=== PATIENT | male | born 1980 | race Caucasian/White ===

== ENCOUNTER 2022-08-21 20:00 | Emergency (ER) | payer OTHER ==
[2022-08-21 20:19] VITALS: BP 125/69
[2022-08-21] MEDS: AMOX/CLAV 875 MG/125 MG TABLET PO STA (21:20)
[2022-08-21] MEDS: HYDROcod/ACET 5/325 Prepack 4 PO STA (21:20)
--- NOTE | 2022-08-21 21:23 | ED Physician Documentation ---
History of Present Illness - Stated complaint Stated Complaint: NASAL PX - Chief complaint Chief Complaint: Heent - Additonal information Additional information: This is a 41-year-old male who has had viral URI symptoms for about 2 weeks but states they are worsening. He has nasal congestion, headache, mild cough. He has no respiratory distress. He states that right maxillary pain has increased substantially over the course of the last couple of days and he was not able to sleep last night due to the pain. He is blowing his nose but not much is coming out. He has tried Flonase and some nasal saline spray without relief. He has no history of chronic sinusitis. No recent antibiotic use. He took several home COVID test which were negative. Review of Systems Ten Systems: 10 systems reviewed and negative (except as per HPI) PD PAST MEDICAL HISTORY - Past Medical History Past Medical History: No Cardiovascular: None Respiratory: None Neuro: None Endocrine/Autoimmune: None GI: None : None HEENT: None Psych: None Musculoskeletal: None Derm: None - Past Surgical History Past Surgical History: Yes General: Other Ortho: ACL reconstruction - Present Medications Home Medications: Ambulatory Orders Medication Instructions Recorded Confirmed Amox/Clav 875/125 [Augmentin] 1 each PO Q12H #20 tablet 08/21/22 - Allergies Allergies/Adverse Reactions: Allergies Allergy/AdvReac Type Severity Reaction Status Date / Time No Known Drug Allergies Allergy Verified 08/21/22 20:19 - Social History Does the pt smoke?: No Smoking Status: Never smoker Does the pt drink ETOH?: No Does the pt have substance abuse?: No - Immunizations Immunizations are current?: Yes - POLST Patient has POLST: No PD ED PE NORMAL - Vitals Vital signs reviewed: Yes - General General: Alert and oriented X 3, No acute distress, Well developed/nourished - HEENT HEENT: Atraumatic, Ears normal, Moist mucous membranes, Pharynx benign, Dentition benign, Other (tender right maxillary sinus, no erythema. Nasal mucosa reddneed, no current drainage. ) - Neck Neck: Supple, no meningeal sign, No adenopathy, No JVD - Cardiac Cardiac: RRR, No murmur - Respiratory Respiratory: No respiratory distress, Clear bilaterally - Abdomen Abdomen: Normal bowel sounds - Derm Derm: Normal color, Warm and dry, No rash - Neuro Neuro: Alert and oriented X 3 Eye Opening: Spontaneous Motor: Obeys Commands Verbal: Oriented GCS Score: 15 - Psych Psych: Normal mood, Normal affect Results - Vitals Vitals: Vital Signs - 24 hr 08/21/22 20:13 Temperature 36.5 C Heart Rate 77 Respiratory 16 Rate Blood Pressure 125/69 O2 Saturation 97 Oxygen O2 Source Room air PD MEDICAL DECISION MAKING - ED course Complexity details: considered differential, d/w patient ED course: This is a 41-year-old well-appearing male who presents with URI symptoms for the last couple weeks which are worsening and now include significant right maxillary sinus pain. He has not had a fever recently to his knowledge. He is taking Tylenol and ibuprofen without relief and has pain that is keeping him up at night. His symptoms are likely viral upper respiratory infection however given his worsening and no improvement over the course last 2 weeks and increasing right maxillary sinus pain I think it is reasonable to treat him for acute bacterial sinusitis with Augmentin. He is non toxic appearing, has no signs of dental abscess or dental caries, no facial erythema or swelling to suggest a need for a CT scan or additional workup. He was advised to continue nasal saline rinses, and continue Flonase. He may take ibuprofen and Tylenol for pain where he was given 4 tablets of Ermine for the next day or so until pain starts to improve. Departure - Departure Disposition: 01 Home, Self Care Condition: Good Instructions: Sinusitis Acute Prescriptions: Amox/Clav 875/125 [Augmentin] 1 each PO Q12H #20 tablet Comments: You presented with about 2 weeks of viral symptoms possibly the flu or another virus. We did do a respiratory viral panel but will not have the results for several hours. It does however seem as though your symptoms are worsening and sometimes Viral syndromes can turn into a bacterial sinusitis. I recommend we treat with Augmentin, antibiotic, that you will need to take for the next 10 days. You should also take ibuprofen and Tylenol for pain, and use Flonase and nasal saline.
[2022-08-21 21:36] LABS: CORONAVIRUS 229E-RESP PCR NOT DETECTED; CORONAVIRUS HKU1-RESP PCR NOT DETECTED; CORONAVIRUS NL63-RESP PCR NOT DETECTED; CORONAVIRUS OC43-RESP PCR NOT DETECTED; HUMAN METAPNEUMOVIRUS NOT DETECTED; RHINOVIRUS/ENTEROVIRUS NOT DETECTED; SARS-CoV-2 -RESP PCR PANEL NOT DETECTED
[2022-08-21 21:37] LABS: B. PARAPERTUSSIS- RESP PCR PAN NOT DETECTED; B. PERTUSSIS- RESP PCR PANEL NOT DETECTED; C. PNEUMONIAE- RESP PCR PANEL NOT DETECTED; INFLUENZA A H3- RESP PCR PANEL DETECTED; INFLUENZA B - RESP PCR PANEL NOT DETECTED; M. PNEUMONIAE- RESP PCR PANEL NOT DETECTED; PARAINFLUENZA VIRUS 1 NOT DETECTED; PARAINFLUENZA VIRUS 2 NOT DETECTED; PARAINFLUENZA VIRUS 3 DETECTED; PARAINFLUENZA VIRUS 4 NOT DETECTED; RSV- RESP PCR PANEL NOT DETECTED
== END 2022-08-21 21:23 | disposition home or self-care (01) ==
LOC: ED 20:00
DX: J01.90 Acute sinusitis, unspecified (principal); Z20.822 Contact with and (suspected) exposure to COVID-19
CPT/HCPCS: 87633; 99282; 99283; A9270

== ENCOUNTER 2023-02-26 17:13 | Emergency (ER) | payer OTHER ==
--- NOTE | 2023-02-26 17:29 | ED Physician Documentation ---
PD HPI UPPER EXT INJURY - Stated complaint Stated Complaint: LT THUM LAC - Chief complaint Chief Complaint: Ext Problem - History obtained from History obtained from: Patient - History of Present Illness Location: Left, Finger (he accidentally closed his truck door onto thumb, with laceration of nailbed and bending of nail corner into the wound, and also crushed the tip. No injury proximal to the IP joint.) Where injury occurred: Home Timing - onset: How many minutes ago (30), Today Timing - details: Abrupt onset, Still present Improved by: No: Rest Worsened by: Moving, Palpating Associated symptoms: Swelling. No: Weakness, Numbness Similar symptoms before: Has not had sx before Review of Systems Skin: reports: Laceration (s) Neurologic: denies: Focal weakness, Numbness PD PAST MEDICAL HISTORY - Past Medical History Cardiovascular: None Respiratory: None Neuro: None Endocrine/Autoimmune: None GI: None : None HEENT: None Psych: None Musculoskeletal: None Derm: None - Past Surgical History Past Surgical History: Yes General: Other Ortho: ACL reconstruction - Present Medications Home Medications: Ambulatory Orders Medication Instructions Recorded Confirmed Amox/Clav 875/125 [Augmentin] 1 each PO Q12H #20 tablet 08/21/22 HYDROcod/ACETAM 5/325 [[place] 5/325] 1 ea PO Q6H PRN #14 tablet 02/26/23 Ibuprofen [Motrin] 600 mg PO TID PRN #25 tab 02/26/23 cephALEXin [Keflex] 500 mg PO QID 5 Days #20 cap 02/26/23 - Allergies Allergies/Adverse Reactions: Allergies Allergy/AdvReac Type Severity Reaction Status Date / Time No Known Drug Allergies Allergy Verified 08/21/22 20:19 - Social History Does the pt smoke?: No Smoking Status: Never smoker Does the pt drink ETOH?: No Does the pt have substance abuse?: No - Immunizations Immunizations are current?: Yes - POLST Patient has POLST: No PD ED PE NORMAL - Vitals Vital signs reviewed: Yes - General General: Alert and oriented X 3, Well developed/nourished, Other (appears in pain due to thumb tip, which has the nail end lifted and bent, lac of the nailbed diagonally, and swelling in tuft. Not tender at IP joint and able to flex/extend okay. Small lac at side of nailbed as well. ) Results - Vitals Vitals: Vital Signs - 24 hr 02/26/23 17:21 Temperature 35.9 C L Heart Rate 85 Respiratory 20 Rate Blood Pressure 140/90 H O2 Saturation 99 Oxygen O2 Source Room air - Rads (name of study) left thumb Relevant Findings:: Prelim report reviewed, EMP independent interpretation of test (tuft fracture small distal piece. No injury at IP. no FB. ), See rad report Procedures - Laceration (location) left thumb nailbed Length in cm: 1 (there is lac in nailbed but proximal nail still attached, so left that. lac sutured is at side of nailbed) Wound type: Linear, Into subcut fat, Clean Neurovascular status: Sensory intact, Motor intact Anesthesia: Lidocaine 1% (digital block) Wound preparation: Irrigated copiously NS, Wound explored, To the base, Other (the nail was bent in middle and distal corner of it was bent and tucked into lac in nailbed. Forceps easily pulled it straight. The nail was now in place but of course loose from bed. The proximal nychium was intact. I could not access the lac without removing nail and I felt it was better remain.) Skin layer closure: Nylon, Interrupted, Size #-0 - enter number (4), Sutures - enter # (1) Other: Patient tolerated well, Neurovascular intact, Tetanus UTD PD Medical Decision Making - ED course Complexity details: reviewed results (tuft fracture with nailbed lac, so technically open fracture, though Orthopedists do not surgically clean these by my experience. Cleansed in ER, covered, and will give Keflex.), considered differential (the nailbed lac stops bleeding with gentle direct pressure. The lac at side of bed had 1 suture placed. The nail is left though is lifted distal half. It is a good shield/contout splint for the nailbed and is good to stay in place. ), d/w patient Drug Therapy Requiring Monitoring for Toxicity: he is cautioned about opiod pain meds and given instructions. The thumb looks like it should hurt and shared decison to give short term Rx hydrocodone. Departure - Departure Disposition: 01 Home, Self Care Clinical Impression: Open fracture of tuft of distal phalanx of left thumb Crush injury to thumb Qualifiers: Encounter type: initial encounter Laterality: left Qualified Code(s): S67.02XA - Crushing injury of left thumb, initial encounter Condition: Stable Record reviewed to determine appropriate education?: Yes Instructions: ED Fx Finger Open Follow-Up: FABIOLA Walker [Provider Group] Prescriptions: cephALEXin [Keflex] 500 mg PO QID 5 Days #20 cap Ibuprofen [Motrin] 600 mg PO TID PRN #25 tab PRN Reason: Pain HYDROcod/ACETAM 5/325 [[place] 5/325] 1 ea PO Q6H PRN #14 tablet PRN Reason: Pain Comments: With the pressure dressing on I think that we will provide enough support to keep it from bleeding notably and allow the cut to close up. My preference would be to leave the nail in place and not remove it to so the cut. See how it does later and into tomorrow. If you get some staining of the dressing that is okay. Recheck if it really is saturating. Right now with just some gentle pressure on the nail it stops bleeding. The nail will of course fall off but its best on now as a splint over the area and provides a better underneath surface for the wound to heal with out unevenness. You do have a tuft fracture. This communicates to the laceration so is technically a "open fracture". Typically with fingertips like this though the orthopedist will treat it as the fracture and the cut with antibiotics and not surgical debridement. The fracture will heal in place and do okay. It will take 4 weeks and be gradually less tender over that timeframe. Use ibuprofen 3 times daily for the next several days to week. Add Tylenol if needed. Cephalexin antibiotic 4 times daily for the next 5 days to reduce the chance of infection. Add hydrocodone every 6 hours if needed for pain in the short-term. It should hurt a fair amount less after several days. Recheck if signs of infection. Leave the initial dressing on for a day or 2 and then start with regular wound care. It is okay to wash and shower. Clean off the wound twice a day with soap and water, or peroxide and water. Apply some antibiotic ointment to it to keep it moist. Also to watch for signs of infection such as purulence, redness or increasing pain. Return to your primary care or the ER at the specified time for suture removal. The 1 suture will need to get removed in about 7 to 8 days. I sent your prescriptions to [facility] pharmacy. My narcotic instructions I am prescribing a short course of narcotic pain medication for you. These are potentially dangerous and addictive medications that should be used carefully. These medications may constipate you. Take an [id number] stool softener such as docusate twice daily with plenty of water while taking these medications. If you go 24 hours without a bowel movement, take [id number] MiraLAX, per package instructions. Do not drink or drive while taking these medications. If you received narcotic or sedating medications while in the emergency department do not drive for 24 hours. Store this medication in a safe, secure place and out of reach of children. It is a violation of federal law to give or sell this medication to another person or to use in a manner other than prescribed. The ED will not refill narcotic prescriptions, including prescriptions lost or stolen. You can dispose of unwanted medications at the [facility]'s office or at several pharmacies such as [facility]. Discharge Date/Time: 02/26/23 18:54
[2023-02-26 17:30] VITALS: BP 140/90
[2023-02-26] MEDS ORDERED: IBUPROFEN 800 MG TABLET PO STA (17:35)
[2023-02-26] MEDS ORDERED: cephALEXin 250 MG CAPSULE PO STA (18:06)
--- NOTE | 2023-02-26 19:25 | XRAY Report ---
PROCEDURE: Finger(s) LT INDICATIONS: thumb crush in truck door. TECHNIQUE: AP hand, 2 views of the left thumb acquired. COMPARISON: None. FINDINGS: Bones: Acute comminuted fracture of the first digit distal phalanx involving the tuft, with mild dis placement/distraction of fracture fragments. Soft tissues: No suspicious soft tissue calcifications . IMPRESSION: Acute comminuted fracture of the distal aspect of the first digit distal phalanx. Reviewed by: Shakir Edwards MD on 02/26/2023 7:24 PM PDT Approved by: Shakir Edwards MD on 02/26/2023 7:24 PM PDT Station ID: [id number]
== END 2023-02-26 18:54 | disposition home or self-care (01) ==
LOC: ED 17:13
DX: S62.522B Displaced fracture of distal phalanx of left thumb, initial encounter for open fracture (principal); W23.0XXA Caught, crushed, jammed, or pinched between moving objects, initial encounter
CPT/HCPCS: 11760; 73140; 99283; 99284; A9270

== ENCOUNTER 2023-09-27 15:42 | Outpatient (CLI) | payer OTHER ==
--- NOTE | 2023-09-27 16:10 | Sleep Patient Instructions ---
Sleep Center Visit Summary - Patient Visit Information Reason for Visit: Initial consult for evaluation of sleep disordered breathing and other sleep issues. - Patient Instructions Instructions Attached: Sleep Study, Sleep Study Home Monitor Additional Instructions: You will be completing a sleep study, either an in-lab polysomnography (PSG) or home sleep study (HST). You will follow-up in the sleep care office after the sleep study is completed to hear the results and talk about therapy, if needed. You will be called by our office staff to schedule this appointment, but you may contact us with any questions. - Clinic Information Contact: [facility] [address] [place] [id number] [email or web address] T: [phone]
--- NOTE | 2023-09-27 16:14 | SLEEP CARE CONSULTATION ---
Information from patient questionnaire entered by Isaac Leon. I have reviewed and concur with the information entered by Isaac Leon. This document represents the service I personally performed and the decisions made by me, Loni Murphy ARNP. History of Present Illness Service Date and Time: 09/27/2023 1542 Reason for Visit: New patient Chief Complaint: reports: Unrefreshed sleep, Snoring, Frequent awakenings at night Date of Onset: YRS Usual bedtime: 9PM Time it takes to fall asleep: 60MIN Snores at night: Yes Observed to quit breathing while asleep: No Sleeps alone due to snoring: Yes Number of times waking at night: 3-5 Reasons for waking at night: reports: Snoring, Pain (shoulder pain), Other (UNKNOWN). denies: Choking, Gasping for air Toss, Turn, or Twitch while sleeping: Yes Recalls having dreams: Yes Usually gets out of bed at: 630AM Feels refreshed in the morning: No Morning headache: Yes (2 days a week; last until 2nd cup of coffee in AM) Sleepy or fatigued during the day: Yes (no unintentional naps) Ever fallen asleep while driving: Yes (drowsy driving; no accidents) Takes day naps: No Dreams during day naps: No Prior sleep studies: No Additional HPI information: I had the pleasure of seeing BRENNAN BURNETT today regarding the possibility of him having a sleep disorder. His current complaints are unrefreshed sleep, snoring and frequent night awakenings. He is to retire from [employer] in about a year. His says he snores loudly. He has woke himself up snoring on his back. He denies waking up choking or gasping for air. He is always tired in the morning and it takes to his 2nd cup of coffee to feel awake. He does have a history of migraines and will wake up with headaches a few times a week. - Parasomnia Symptoms Ever been unable to move upon waking from sleep: No Walks in sleep: No Talks in sleep: Yes (yelling or having conversations according to ) Ever acted out dreams in sleep: Yes (jerked awake from dream) Ever felt weak in the knees when startled or emotional: No Bothered by creepy, crawly, restless sensations in legs: No Problems with memory or concentration: No Subjective Initial Follett Sleepiness Scale score: 11 (08/27/23) Past Medical History Past Medical History: reports: Arthritis, Other (migraines; Eustachian tube procedure 3-4 yrs ago) Social History The patient's occupation is a AM. Patient is and lives in [place]. Have you smoked in the past 12 months: No Cigarettes per day (20/pack): 20 Years of smokin Quit date: 2012 Smoking Pack Years: 5.0 Alcohol use: No Caffeine use: Yes Caffeine amount and frequency: 2 CUPS COFFEE DAILY Family History Family history of sleep disordered breathing: Yes Family Hx Sleep Apnea: Mother: Snoring, Father: Snoring, Sleep apnea - Untreated, Sibling: Snoring, Grandparent: Snoring Allergies and Home Medications Known drug allergies: No Drug allergies reviewed: Yes Home medication list reviewed: Yes Allergy and home medication list: Allergies No Known Drug Allergies Allergy (Verified 09/25/23 13:55) Home Medications Medication Instructions Recorded Confirmed Last Taken Type Excedrine Migrain See Rx Instructions .ROUTE .COMPLEX 09/27/23 Unknown History Meloxicam See Rx Instructions .ROUTE .COMPLEX 09/27/23 09/27/23 Unknown History Review of Systems Weight loss over past 5 years: 5 Cardiovascular: denies: high blood pressure Gastrointestinal: denies: heartburn Neurological: reports: headaches Psychiatric: denies: anxiety, depression Ear/Nose/Throat: reports: nasal congestion, nose bleeds, wisdom teeth removed. denies: tonsillectomy Musculoskeletal: reports: joint pain, back pain, joint swelling, muscle pain or cramping Immunologic: reports: sneezing Physical Exam Vital signs obtained and entered by: ISAAC Mix MA Blood Pressure: 113/80 (LEFT ARM) Cuff size: regular Heart Rate: 73 O2 Saturation: 98 Height: 5 ft 10 in Weight: 219 lb 6.4 oz Body Mass Index: 31.4 BMI Classification: Obese Neck circumference: 19.5 Mouth and throat: normal Soft palate: long Hard palate: normal Uvula: normal Uvula visualization: 25% Mallampati Class III Tongue: enlarged in size with teeth diaz on lateral edges Tonsils: small Neck: normal w/o lymphadenopathy or thyromegaly Heart: regular rate and rhythm Lungs: clear bilaterally Impression and Plan 1. Suspected Obstructive Sleep Apnea-Hypopnea Syndrome, as suggested by a history of loud and irregular snoring, morning headache, frequent awakening during the night and unrefreshed sleep. Narrow oropharynx and obesity are common predisposing factors for obstructive sleep apnea-hypopnea syndrome. I recommend proceeding to polysomnography to confirm the diagnosis and to assess severity. If the patient has significant sleep disordered breathing, a manual CPAP titration study will also be performed to find the optimal treatment pressure. I informed the patient of what the sleep studies involve and after some discussion, obtained agreement to proceed. The pathophysiology of obstructive sleep apnea-hypopnea syndrome was discussed with the patient and health risks of cardiovascular and cerebrovascular disease if not treated. Risks of drowsy driving discussed in detail and patient advised to avoid long distance driving and to box puller at the first sign of drowsiness. Patient agreed to plan. * Schedule polysomnography. * Avoid long distance driving or driving when feeling sleepy. * Avoid alcohol, sedative and muscle relaxant around bedtime. * Attempt to lose weight. * Review instructions provided by trained office staff on how to prepare for the sleep study. * Return for follow-up after sleep study completed. Counseling Topics: Weight loss health impact Plan: PSG/HST and followup Visit Type: In Office Time Spent with Patient (minutes): 30 Provider Statement: I spent 100% of the Face to Face Visit with the patient with greater than 50% spent counseling the patient and coordination of care.
[2023-09-27 16:25] VITALS: BP 113/80; O2SAT 98
== END 2023-09-27 15:43 | disposition home or self-care (01) ==
LOC: SC 15:42
PROVIDERS: ATTEND Nurse Practitioner Family
DX: R06.83 Snoring (principal); G47.8 Other sleep disorders; R51.9 Headache, unspecified; E66.9 Obesity, unspecified; Z68.31 Body mass index [BMI] 31.0-31.9, adult; Z87.891 Personal history of nicotine dependence
CPT/HCPCS: 99203; 99212

== ENCOUNTER 2023-10-07 19:18 | Outpatient (CLI) | payer OTHER | END 2023-10-07 19:19 | disposition home or self-care (01) | LOC: SC 19:18 | PROVIDERS: ATTEND Nurse Practitioner Family | DX: G47.33 Obstructive sleep apnea (adult) (pediatric) (principal) | CPT/HCPCS: 95810 ==

== ENCOUNTER 2023-10-15 11:28 | Outpatient (CLI) | payer OTHER ==
--- NOTE | 2023-10-15 11:45 | Sleep Patient Instructions ---
Sleep Center Visit Summary - Patient Visit Information Reason for Visit: Sleep study follow-up - Patient Instructions Instructions Attached: CPAP Additional Instructions: You are being started on CPAP therapy with pressure setting at 4-15 cmH2O. You w ill need to call the sleep care office to set up your follow up once you have your APAP machine and we will schedule a visit to check compliance and response to therapy at that time. You may call the office with any concerns about pressure feeling too low or too much for adjustment, if needed. You should contact DME supplier for any questions or concerns about mask or equipment. Please call office to schedule a follow up appointment in the sleep care office one month after obtaining new device. - Clinic Information Contact: [facility] [address] [place] [email or web address] T: [phone]
--- NOTE | 2023-10-15 11:47 | SLEEP CARE CONSULTATION ---
Information from patient questionnaire entered by Josey Leon. I have reviewed and concur with the information entered by Josey Leon. This document represents the service I personally performed and the decisions made by me, Loni Murphy ARNP. History of Present Illness Service Date and Time: 10/15/[address] [place] Sleepiness Scale score: 11 (08/27/23) Current [place] Sleepiness Scale score: 12 Additional HPI information: BRENNAN BURNETT returns for follow up and results of the recently performed polysomnography. The sleep study showed severe obstructive sleep apnea with an average AHI of 32.2 and ananda oxygen saturation of 80%. I explained the pathophysiology behind obstructive sleep apnea. We then spent quite a bit of time discussing different treatment options. For mild obstructive sleep apnea, surgery and oral appliance are alternatives to nasal CPAP therapy but in moderate or severe cases, nasal CPAP is the most effective and reliable treatment. Because apnea is primarily in supine position, then positional management therapy could be effective. Methods discussed such as positioning with pillows, using a T-shirt with tennis balls in the back or commercial products that have a pillow format on back to prevent supine sleep. I reviewed the impact of weight changes on sleep apnea and strongly recommended losing weight. After some discussion, the patient opted to go with the nasal CPAP therapy. Nasal autoCPAP set at 4-15 cmH20 will be ordered with rationale explained. A manual titration study will be ordered if unable to find optimal pressure with office adjustments. I explained how CPAP machine works and what to expect when using the machine. Using CPAP every night in order to get used to it was emphasized. Patient advised to put CPAP mask on before getting into bed so as not to fall asleep without CPAP. To assist acclimation to CPAP use, it could also be used for a short time during day while reading or watching TV. The patient was instructed to call the CPAP supplier to discuss any mechanical problem that may occur. If the mask given is uncomfortable or is difficult to keep on through the night even with adjustment, contact the CPAP supplier as many will replace with another mask style if notified before 30 days. If snoring or perceives is not getting enough air or too much air from the machine, notify this office. Patient does not drink alcohol. Patient was cautioned about risks of drowsy driving until sleepiness symptoms resolve. Patient denies drowsy driving. Sleep Study - Results Type of Sleep Study: Polysomnography (COMPLETED 10/07/2023) Prior sleep studies: No Polysomnography/Home Sleep Study results: IMPRESSION: The quality of the study is good. The patient had normal sleep efficiency. The sleep architecture was abnormal for sleep fragmentation and reduced amount of time spent in slow wave sleep (N3). Respiratory monitoring showed severe obstructive sleep apnea-hypopnea (AHI = 32.2) associated with frequent arousals, oxyhemoglobin desaturation and mild hypoxia (ananda oxygen saturation of 80%). Baseline oxygen saturation was normal. The respiratory events occurred almost exclusively during supine sleep (supine AHI = 47.4; non-supine = 1.61). Snore was moderate to loud in intensity. There was no significant periodic leg movement of sleep. Cardiac rhythm was normal sinus rhythm without significant arrhythmia. No abnormal behavior (parasomnia) observed during the night. Allergies and Home Medications Known drug allergies: No Drug allergies reviewed: Yes Home medication list reviewed: Yes (no changes) Allergy and home medication list: Allergies No Known Drug Allergies Allergy (Verified 10/10/23 17:48) Review of Systems Review of systems same as previous: Yes (no changes) Physical Exam Vital signs obtained and entered by: JELLY COPE Blood Pressure: 123/81 Cuff size: regular (right arm) Heart Rate: 62 O2 Saturation: 97 Height: 5 ft 10 in Weight: 227 lb 3.2 oz Body Mass Index: 32.5 BMI Classification: Obese Impression and Plan 1. Obstructive Sleep Apnea-Hypopnea Syndrome, severe, with lowest oxygen saturation of 80%. Obviously this is the cause of the patients symptoms of unrefreshed sleep, and excessive daytime sleepiness. Positive pressure therapy could benefit migraines. As mentioned above, the patient will be started on nasal autoCPAP therapy with pressure set at 4-15 cmH2O. A manual titration study will be completed if unable to find optimal treatment pressure with office adjustments. Compliance guidelines also reviewed. A copy of compliance guidelines will be given for reference at check out. Because the apnea is more severe supine, I instructed to avoid sleeping supine using pillow positioning until able to start CPAP use. 2. Hypoxemia, mild, with a ananda oxygen saturation of 80% and 43.3 minutes spent under 90%. The baseline oxygen saturation was normal with an average oxygen saturation of 91%. 3. Obesity, unspecified. Currently patients BMI is 32.5. Obesity increases the risk of apnea, CPAP pressure requirements and overall health risks especially cardiovascular and diabetes. Thus patient is advised to lose weight. * Nasal auto CPAP therapy, pressure at 4-15 cm H2O. * Attempt to lose weight. * Avoid alcohol consumption near bedtime. * Avoid supine sleep until using CPAP. * The patient is again cautioned about driving until sleepiness completely resolves. * Return one month after CPAP obtained. I will assess response to therapy and compliance at that time. Counseling Topics: Weight loss health impact Prescriptions: Auto CPAP, Device supplies Follow up with Sleep Care in: other (for compliance visit) Visit Type: In Office Time Spent with Patient (minutes): 21 Provider Statement: I spent 100% of the Face to Face Visit with the patient with greater than 50% spent counseling the patient and coordination of care.
[2023-10-15 11:48] VITALS: BP 123/81; O2SAT 97
== END 2023-10-15 11:29 | disposition home or self-care (01) ==
LOC: SC 11:28
PROVIDERS: ATTEND Nurse Practitioner Family
DX: G47.33 Obstructive sleep apnea (adult) (pediatric) (principal); R09.02 Hypoxemia; E66.9 Obesity, unspecified; Z68.32 Body mass index [BMI] 32.0-32.9, adult
CPT/HCPCS: 99212; 99213

== ENCOUNTER 2024-01-02 11:06 | Outpatient (CLI) | payer OTHER ==
--- NOTE | 2024-01-02 11:43 | Sleep Patient Instructions ---
Sleep Center Visit Summary - Patient Visit Information Reason for Visit: First compliance follow-up - Patient Instructions Additional Instructions: You were here for follow up of CPAP therapy. You will be continued on CPAP therapy with pressure at 8-10 cmH2O. Please let us know if the pressure change is uncomfortable and we can make further adjustments of the pressure. You should follow up with sleep care in 1-2 months. You may contact us sooner for any questions or concerns. - Clinic Information Contact: [facility] [address] [place] [address] [email or web address] T: [phone]
--- NOTE | 2024-01-02 11:46 | SLEEP CARE CONSULTATION ---
Information from patient questionnaire entered by Isaac Leon. I have reviewed and concur with the information entered by Isaac Leon. This document represents the service I personally performed and the decisions made by me, Loni Murphy ARNP. History of Present Illness Service Date and Time: 01/02/2024 1106 Previous diagnosis: Severe, Obstructive Sleep Apnea-Hypopnea Syndrome AHI: 32.2 (10/07/2023) Reason for follow up: first compliance Equipment type: CPAP (RESMED Airsense 11, S/U 10/25/23) Equipment obtained from: Other ([facility]; getting supplies) Mask style: Nasal Backup mask available: No (will keep old mask when replaced) Last cushion change: 2 months Prior sleep studies: No Type of Sleep Study: Polysomnography (COMPLETED 10/07/2023) HPI additional information: BRENNAN BURNETT was diagnosed to have severe, AHI 32.2, obstructive sleep apnea- hypopnea syndrome and returned today for CPAP therapy first compliance follow- up. Sleep Study - Results Type of Sleep Study: Polysomnography (COMPLETED 10/07/2023) Prior sleep studies: No CPAP Compliance Data - Data Reviewed with Patient Average duration of nightly device use: 5 HRS 0 MINS Compliance rate %: 70 (10/26/23-11/24/23; / days used) Current pressure setting (cmH2O): 4-15 (median 6.1, avg 8.5, max 9.6) Average residual AHI: 2.1 Central apnea: 0.4 Obstructive apnea: 1.3 Average large leak: 0.5 L/min Compliance data discussion: He says he is waiting on new mask cushion because the old one is so wore out he cannot get a good enough seal to use the mask. He was notified that it has been sent and is waiting for it to arrive. Subjective Missed days of use due to: reports: mask issues (mask worn out), illness, travel Patient concerns: reports: mask discomfort (cushion is not sealing due to being wore out), nasal congestion. denies: aerophagia, air blowing in eyes, mask leak noise, condensation in mask/hose, dry mouth, nose, throat, epistaxis Observed to snore while using device: No Current pressure setting perceived as: comfortable On therapy, patient: reports: sleeping better, awakening more refreshed, being more awake and alert during the day, more rested overall. denies: drowsiness while driving Initial [place] Sleepiness Scale score: 11 (08/27/23) Current [place] Sleepiness Scale score: 3 (01/02/24) Allergies and Home Medications Known drug allergies: No Drug allergies reviewed: Yes Home medication list reviewed: Yes (no changes) Allergy and home medication list: Allergies No Known Drug Allergies Allergy (Verified 12/31/23 10:17) Review of Systems Review of systems same as previous: Yes (NO CHANGE) Physical Exam Vital signs obtained and entered by: ISAAC Mix MA Blood Pressure: 133/79 (LEFT ARM) Cuff size: regular Heart Rate: 66 O2 Saturation: 99 Height: 5 ft 10 in Weight: 218 lb 3.2 oz Body Mass Index: 31.3 BMI Classification: Obese Impression and Plan 1. Obstructive Sleep Apnea-Hypopnea Syndrome, severe, with good treatment compliance and good apnea control. On CPAP therapy, the patient has better sleep quality and is more rested overall. [] The patients pressure will be changed to autoCPAP [8-10] cmH20 to reflect pressure being used with significant improvement of sleep apnea. Patient advised to contact me if pressure change is uncomfortable so that it can be adjusted. Goals for apnea control discussed. Patient's apnea severity and rationale for treatment to reduce apnea, improve sleep quality and reduce cardiovascular and cerebrovascular events was reviewed. I also reviewed the benefit of consistent device use of CPAP for migraines. 2. [Obesity][Overweight], unspecified. Currently patients BMI is [31.3]. Obesity increases the risk of apnea, CPAP pressure requirements and overall health risks especially cardiovascular and diabetes. Thus patient is advised to[ continue to try to] lose weight. * Change [auto] CPAP pressure to [8-10] cmH2O * Notify me if snoring with mask or feeling that the pressure is too much or too little * Attempt to lose weight * Call this office if any problems using CPAP * Return for follow up in 1-2 months, or sooner if concerns arise Adjust device pressure to (cmH2O): 8-10 Counseling Topics: Spare mask, Weight loss health impact Follow up with Sleep Care in: 1-2 months Visit Type: In Office Time Spent with Patient (minutes): 13 Provider Statement: I spent 100% of the Face to Face Visit with the patient with greater than 50% spent counseling the patient and coordination of care.
[2024-01-02 11:49] VITALS: BP 133/79; O2SAT 99
== END 2024-01-02 11:07 | disposition home or self-care (01) ==
LOC: SC 11:06
PROVIDERS: ATTEND Nurse Practitioner Family
DX: G47.33 Obstructive sleep apnea (adult) (pediatric) (principal); E66.9 Obesity, unspecified; Z68.31 Body mass index [BMI] 31.0-31.9, adult
CPT/HCPCS: 99212